=== PATIENT | male | born 1990 | race Caucasian/White ===

== ENCOUNTER 2016-10-22 01:05 | Emergency (ER) | payer OTHER ==
[2016-10-22 03:36] VITALS: BP 147/71
== END 2016-10-22 03:36 | disposition home or self-care (01) ==
LOC: ED 01:05
DX: S06.2X0A Diffuse traumatic brain injury without loss of consciousness, initial encounter (principal); W22.8XXA Striking against or struck by other objects, initial encounter; Y93.89 Activity, other specified; Y92.89 Other specified places as the place of occurrence of the external cause; Y99.8 Other external cause status; G44.309 Post-traumatic headache, unspecified, not intractable
CPT/HCPCS: J1885; J2765